=== PATIENT | female | born 2000 | race Caucasian/White ===

== ENCOUNTER 2019-10-13 09:07 | Outpatient (CLI) | payer BC ==
--- NOTE | 2019-10-13 14:11 | CT ---
CT OF THE ABDOMEN AND PELVIS WITH IV AND ENTERIC CONTRAST: 10/13/19 INDICATION: History of right lower quadrant abdominal mass and right lower quadrant abdominal pain. COMPARISON: CT of the abdomen and pelvis performed at [facility] [place] dated July 13, 2009. FINDINGS: There is worsening irregular mass-like prominence involving the peters of the cecum and terminal ileum . There is an eccentric nodular mass component protruding from the posterior wall of the cecum possib ly in the expected region of the appendix measuring 2.4 cm. There is a new soft tissue nodule seen al karen the anterior aspect of the lower right peritoneal cavity on image 76 of series 2 measuring 1.5 cm . There is prominent right lower quadrant mesentery lymphadenopathy, slightly more pronounced than on the prior examination, with the largest lymph nodes seen on image 56, series 2 measuring 1.2 cm. The re is inflammatory reticulation within the right lower quadrant peritoneum as well as the mesentery. No drainable fluid collection is grossly evident. The uterus, adnexa, bladder, rectum, and perirectal soft tissues are unremarkable appearing. The larg e bowel otherwise appears within normal limits. The remaining small bowel appears within normal limit s. The stomach appears within normal limits. The spleen measures 11.5 cm. there is stable 1.3 cm left renal cyst. Right kidney is normal appearing. No focal hepatic lesion is evident. The visualized gal lbladder and pancreas are within normal limits. Adrenal glands are normal appearing. No definite acute osseous abnormality is evident. IMPRESSION: 1. Worsening inflammatory, mass-like, wall thickening involving the cecum and terminal ileum wit h surrounding inflammatory stranding within the right lower quadrant mesentery. There is worsening ri ght lower quadrant mesenteric lymphadenopathy. There is a new soft tissue nodule seen along the anter ior aspect of the lower right lower quadrant peritoneum on image 76, series 2 measuring 1.5 cm suspic ious for either enlarged lymph node or possibly a peritoneal metastatic lesion. Differential consider ations for these findings include prominent inflammatory bowel disease related to Crohn's disease and reactive lymphadenopathy or localized malignancy of the appendix, cecum or terminal ileum with regio nal spread of disease in the right lower quadrant mesentery. Severe infectious ileocecitis with react bryn lymph nodes could produce a similar finding. 2. Stable left renal cyst. Code T
== END 2019-10-13 09:08 | disposition home or self-care (01) ==
LOC: SCSCT 09:07
PROVIDERS: ATTEND Specialist
DX: R19.03 Right lower quadrant abdominal swelling, mass and lump (principal); N20.1 Calculus of ureter
CPT/HCPCS: 74177